=== PATIENT | male | born 1960 | race Caucasian/White ===

== ENCOUNTER → 2017-01-31 | Outpatient (CLI) | payer BC ==
--- NOTE | 2017-01-31 12:45 | EST ---
DATE OF SERVICE: 01/31/2017 AGE: 56Y SEX: M HT: 75" WT: 240 lbs. Protocol Pavel: X Other: Stress Stage: 2 Dur. of Exercise: 8:00 *Heart Rate Blood Pressure *Rest: 104 Rest: 155/73 * *Max. Achieved: 143 Maximum BP: 202/60 85% PMHR: 139 100% PMHR: 164 *METS: 9.3 INDICATIONS: Chest pain. MEDICATIONS: Metformin, aspirin. STRESS DATA: Pretesting physical examination showed heart rate of 104, pressure is 155-73 mmHg. Baseline EKG showed sinus mechanism. The patient exercised on the treadmill according to Pavel protocol for a total of 8 minutes and achieved 10 of METs. Max heart rate was 143, which is about 87% of maximum predicted heart rate. Maximum blood pressure was 202/60 mmHg. Clinically, the patient did not have any symptoms of chest pain or discomfort during the testing or in the recovery time. The EKG did not show any significant ST or T-wave abnormalities consistent with ischemia. CONCLUSION: 1. Good exercise capacity. 2. Normal EKG in response to exercise. 3. Essentially normal stress test for this gentleman.
== END | disposition home or self-care (01) ==
LOC: RADNMMAIN 11:17
PROVIDERS: ATTEND Internal Medicine
DX: R07.9 Chest pain, unspecified (principal)
CPT/HCPCS: 93017

== ENCOUNTER 2020-07-25 19:39 | Inpatient (IN) | payer BC, OTHER ==
[2020-07-25] MEDS ORDERED: METOPROLOL TARTRATE 5 MG/5 ML VIAL IVP STA (19:54)
--- NOTE | 2020-07-25 19:55 | ED ---
Chest Pain HPI - General Chief Complaint: Chest Pain Stated Complaint: Chest Pain Time Seen by Provider: 07/25/20 19:46 Source: patient, RN notes reviewed, old records reviewed Mode of arrival: ambulatory Limitations: no limitations - History of Present Illness Initial Comments: This is a 6-year-old male DF for evaluation of 3 days of chest pain exertional dyspnea. Patient has history of diabetes no history of heart disease. No fever cough or congestion. Symptoms began after prostate biopsy taking Cipro she was related to the Cipro. The pain is persistent last 2 days worsening today. MD Complaint: chest pain -: days(s) (3) Onset: during rest, during exertion Pain Location: left chest Pain Radiation: RUE, LUE Severity: mild Quality: tightness Consistency: constant Improves With: nothing Context: recent surgery Other Symptoms: palpitations Treatments Prior to Arrival: none - Related Data Allergies Allergy/AdvReac Type Severity Reaction Status Date / Time No Known Allergies Allergy Verified 07/25/20 19:50 Review of Systems ROS Statement: Those systems with pertinent positive or pertinent negative responses have been documented in the HPI. ROS Other: All systems not noted in ROS Statement are negative. EKG Findings - EKG Comments: EKG Findings:: EKG is sinus tachycardia of 101 [place] 178 QRS 90 QTC of 435 Past Medical History Past Medical History: Diabetes Mellitus History of Any Multi-Drug Resistant Organisms: None Reported Past Surgical History: No Surgical Hx Reported Past Psychological History: No Psychological Hx Reported Smoking Status: Never smoker Past Alcohol Use History: None Reported Past Drug Use History: None Reported General Exam Limitations: no limitations General appearance: alert, in no apparent distress, anxious Head exam: Present: atraumatic, normocephalic, normal inspection Eye exam: Present: normal appearance, PERRL, EOMI. Absent: scleral icterus, conjunctival injection, periorbital swelling ENT exam: Present: normal exam, mucous membranes moist Neck exam: Present: normal inspection. Absent: tenderness, meningismus, lymphadenopathy Respiratory exam: Present: normal lung sounds bilaterally. Absent: respiratory distress, wheezes, rales, rhonchi, stridor Cardiovascular Exam: Present: normal rhythm, tachycardia, normal heart sounds. Absent: systolic murmur, diastolic murmur, rubs, gallop, clicks GI/Abdominal exam: Present: soft, normal bowel sounds. Absent: distended, tenderness, guarding, rebound, rigid Extremities exam: Present: normal inspection, full ROM, normal capillary refill. Absent: tenderness, pedal edema, joint swelling, calf tenderness Back exam: Present: normal inspection Neurological exam: Present: alert, oriented X3, CN II-XII intact Psychiatric exam: Present: normal affect, normal mood Skin exam: Present: warm, dry, intact, normal color. Absent: rash Course Vital Signs 07/25/20 19:48 Temperature 98 F Pulse Rate 107 H Respiratory 20 Rate Blood Pressure 205/132 O2 Sat by Pulse 98 Oximetry - Reevaluation(s) Reevaluation #1: 07/25/20 21:28 Record is reviewed Reevaluation #2: 07/25/20 21:28 Patient blood pressures improved and pain is controlled - Consultations Consultation #1: Spoke with Dr. Turner who is aware of patient, will see in the morning Chest Pain MDM - MDM 60 male DF for evaluation patient Dese for evaluation regards to chest pain elevated blood pressure hypertensive emergency. Other troponin non-STEMI. Critical Care Time Critical Care Time: Yes Total Critical Care Time: 31 Disposition Clinical Impression: Chest pain, Acute non-ST elevation myocardial infarction (NSTEMI) Disposition: ADMITTED IP TO THIS HOSP Condition: Serious Referrals: Ruth Faust, ABRAM [REFERRING] - 1-2 days
[2020-07-25] MEDS ORDERED: LABETALOL SYRINGE 5 MG/ML IVP STA (20:08)
[2020-07-25 20:10] LABS: Basophils # (A) 0.1 k/uL (0-0.2); Basophils % (A) 1 %; Eosinophils # (A) 0.5 k/uL (0-0.7); Eosinophils % (A) 4 %; HCT 46.4 % (39.0-53.0); Lymphocytes # (A) 3.9 k/uL (1.0-4.8); Lymphocytes % (A) 34 %; MCH 29.4 pg (25.0-35.0); MCHC 32.3 g/dL (31.0-37.0); MCV 90.9 fL (80.0-100.0); Mean Platelet Volume 7.5; Monocytes # (A) 0.7 k/uL (0-1.0); Monocytes % (A) 6 %; Neutrophils # (A) 6.1 k/uL (1.3-7.7); Neutrophils % (A) 53 %; Platelet Count 259 k/uL (150-450); RBC 5.11 m/uL (4.30-5.90); RDW 13.3 % (11.5-15.5); WBC 11.5 k/uL (3.8-10.6)
[2020-07-25 20:19] LABS: Partial Thromboplastin Time 23.5 sec (22.0-30.0); Prothrombin Time 10.5 sec (9.0-12.0)
[2020-07-25 20:21] LABS: ALT 31 U/L (4-49); AST 27 U/L (17-59); African American GFR (CKD) >90 (>60 ml/min/1.73 sqM); Albumin 4.4 g/dL (3.5-5.0); Alkaline Phosphatase 65 U/L (38-126); Anion Gap 9 mmol/L; Blood Urea Nitrogen 19 mg/dL (9-20); Calcium 9.3 mg/dL (8.4-10.2); Carbon Dioxide 25 mmol/L (22-30); Chloride 104 mmol/L (98-107); Glucose 205 mg/dL (74-99); Lipase 54 U/L (23-300); Magnesium 1.9 mg/dL (1.6-2.3); Non-African American GFR(CKD) 88 (>60 ml/min/1.73 sqM); Potassium 4.1 mmol/L (3.5-5.1); Sodium 138 mmol/L (137-145); Total Bilirubin 0.6 mg/dL (0.2-1.3); Total Protein 7.4 g/dL (6.3-8.2)
[2020-07-25] MEDS ORDERED: NITROGLYCERIN SL TABS 0.4 MG TAB SUBLINGUAL STA (21:00)
--- NOTE | 2020-07-25 21:01 | CT ---
EXAMINATION TYPE: CT angio thor/abd pel aorta DATE OF EXAM: 07/25/2020 COMPARISON: Chest x-ray same date HISTORY: Chest pain. CT DLP: 2264.8 mGycm. Automated Exposure Control for Dose Reduction was Utilized. CONTRAST: CT scan of the thorax, abdomen and pelvis is performed without and with IV Contrast, patient injected with 100ml mL of Isovue 370. FINDINGS: There is no evident aortic aneurysm or dissection. Aorta is patent, there are 3 super aorti c branch vessels. Celiac axis, superior mesenteric artery, inferior mesenteric artery, renal arteries , common iliac, internal and external iliac arteries are patent. Common femoral arteries, proximal de ep and superficial femoral arteries are patent. LUNGS: The lungs are grossly clear, there is no concerning parenchymal mass or nodule identified. T here is no pleural effusion or pneumothorax seen. The tracheobronchial tree is patent. MEDIASTINUM: There are no greater than 1 cm hilar or mediastinal lymph nodes. No pericardial effusi on is seen. OTHER: No additional significant abnormality is seen. LIVER/GB: Liver shows low attenuation likely due to hepatic steatosis. The liver is enlarged. Gallbla dder is unremarkable.. PANCREAS: No significant abnormality is seen. SPLEEN: No significant abnormality is seen. ADRENALS: No significant abnormality is seen. KIDNEYS: No significant abnormality is seen. BOWEL: Diverticular changes noted within the colon. GENITAL ORGANS: Prostate is enlarged. There is an inferior impression on the urinary bladder. LYMPH NODES: No greater than 1cm abdominal or pelvic lymph nodes are appreciated. OSSEOUS STRUCTURES: There is a spinal curvature. Degenerative disc changes, multilevel spondylosis pr esent. Some osteoarthritic change present within the left hip. Bilateral spondylolysis present at L5. OTHER: Urinary bladder shows concentric wall thickening possibly due to chronic outlet obstruction. IMPRESSION: No evident pulmonary embolism or aortic dissection, no aortic aneurysm. Hepatomegaly, hep atic steatosis. Diverticulosis. Spondylolysis, degenerative disc disease, prosthetic enlargement and additional findings above.
--- NOTE | 2020-07-25 21:13 | XR ---
EXAMINATION TYPE: XR chest 2V DATE OF EXAM: 07/25/2020 COMPARISON: CT same date HISTORY: Chest pain TECHNIQUE: Frontal and lateral views of the chest are obtained. FINDINGS: There is no focal air space opacity, pleural effusion, or pneumothorax seen. The cardiac silhouette size is within normal limits. The osseous structures are intact. IMPRESSION: No acute cardiopulmonary process.
[2020-07-25] MEDS ORDERED: HEPARIN SODIUM,PORCINE 5,000 UNIT/ML 1 ML VIAL IV PRN (21:26)
[2020-07-25] MEDS ORDERED: ASPIRIN 81 MG PO STA (21:26)
[2020-07-25] MEDS ORDERED: HEPARIN SODIUM,PORCINE 5,000 UNIT/ML 1 ML VIAL IV ONE (21:26)
[2020-07-25] MEDS ORDERED: HEPARIN SOD,PORK IN 0.45% NACL 25,000 UNIT in 0.45% NACL 1 250ML.BAG IV SCH (21:30)
[2020-07-25] MEDS: SODIUM CHLORIDE 0.9% 1,000 ML IV SCH (21:53)
[2020-07-25] MEDS: MORPHINE SULFATE 4 MG/ML SYRINGE IV PRN (23:29)
[2020-07-26] MEDS ORDERED: NITROGLYCERIN SL TABS 0.4 MG TAB SUBLINGUAL PRN ×2 (00:07→11:16)
--- NOTE | 2020-07-26 00:14 | P.HPIM ---
History of Present Illness H&P Date: 07/25/20 Chief Complaint: chest pain 60 year old male with DM patient comes in due to retrosternal chest pain , non radiating, started suddenly today , not related to any specific physical activity , he denies any exertional dyspnea in the past, he reports having hypertension ,but has not been started on medications, he also has DM on oral hypoglycemic agents with A1C of 7.7 pain started today , but he recalls an episode of brief chest discomfort few days ago. he states pain feels dull , 8-10/10 in severity, not associated with any dizziness, palpitations, SOB, diaphoresis , nausea or vomiting. denies any recent travel or hospitalization , however he recently had prostate US done. denies any sick contact, or coughing in the ED , troponins were elevated along with his blood pressure Review of Systems Pertinent positives as noted in HPI. All other systems were reviewed and are negative Past Medical History Past Medical History: Diabetes Mellitus History of Any Multi-Drug Resistant Organisms: None Reported Past Surgical History: No Surgical Hx Reported Past Psychological History: No Psychological Hx Reported Smoking Status: Never smoker Past Alcohol Use History: None Reported Past Drug Use History: None Reported - Past Family History family Family Medical History: Coronary Artery Disease (CAD) Medications and Allergies Home Medications Medication Instructions Recorded Confirmed Type Augmentin Unknown Dose 1 tab PO DAILY 07/25/20 07/25/20 History Cholecalciferol [Vitamin D3 (25 1,000 unit PO DAILY 07/25/20 07/25/20 History Mcg = 1000 Iu)] Ciprofloxacin HCl [Cipro] 500 mg PO DAILY 07/25/20 07/25/20 History Metformin Unknown Dose 2 tab PO DAILY 07/25/20 07/25/20 History Zinc 50 mg PO DAILY 07/25/20 07/25/20 History glipiZIDE [Glucotrol] 5 mg PO AC-BRKFST 07/25/20 07/25/20 History Allergies Allergy/AdvReac Type Severity Reaction Status Date / Time No Known Allergies Allergy Verified 07/25/20 21:33 Physical Exam Vitals: Vital Signs Temp Pulse Resp BP Pulse Ox 07/25/20 23:00 98.0 F 90 18 159/90 98 07/25/20 19:48 98 F 107 H 20 205/132 98 Intake and Output 07/25/20 07/25/20 07/26/20 14:59 22:59 06:59 Other: Weight 107.501 kg Constitutional: No acute distress, conversant, pleasant Eyes: Anicteric sclerae, moist conjunctiva, Pupils equal round reactive to light ENMT: NC/AT Oropharynx clear, no erythema, or exudates Neck: Supple, FROM, no masses, or JVD No carotid bruits No thyromegaly Lungs: Clear to auscultation Clear to percussion Normal respiratory effort, no accessory muscle use Cardiovascular: Heart regular in rate and rhythm, No murmurs, gallops, or rubs No peripheral edema Abdominal: Soft Nontender, no guarding, rebound or rigidity Abdomen moving with respiration Normoactive bowel sounds No hepatomegaly, No splenomegaly No palpable mass No abdominal wall hernia noted Skin: Normal temperature, tone, texture, turgor No induration No subcutaneous nodules No rash, lesions No ulcers Extremities: No digital cyanosis No clubbing Pedal pulses intact and symmetrical Radial pulses intact and symmetrical No calf tenderness Psychiatric: Alert and oriented to person, place and time Appropriate affect fair judgement Neuro Muscles Strength 5/5 in all 4 extremities Sensation to light touch grossly present throughout Cranial nerves II-XII grossly intact No focal sensory deficits Lymphatics: no palpable cervical or supraclavicular , or inguinal lymph nodes Results CBC & Chem 7: 07/25/20 20:02 07/25/20 20:02 Labs: Abnormal Lab Results - Last 24 Hours (Table) 07/25/20 07/25/20 07/25/20 Range/Units 20:02 20:02 20:02 WBC 11.5 H (3.8-10.6) k/uL Glucose 205 H (74-99) mg/dL Troponin I 0.464 H* (0.000-0.034) ng/mL 07/25/20 Range/Units 22:44 WBC (3.8-10.6) k/uL Glucose (74-99) mg/dL Troponin I 1.010 H* (0.000-0.034) ng/mL Assessment and Plan Assessment: N-STEMI Related hypertension Atypical chest pain Plan Heparin drip Nitro when necessary Start on beta kaley Gentle IV fluid hydration Statin, aspirin Cardiology consult hall monitor Diabetes mellitus on insulin sliding scale A1c 7.7 home on oral hypoglycemic agents CODE STATUS:full code DVT prophylaxis: heparin gtt for ACS Discussed with: Patient, ER Anticipated length of stay < than [address]: home A total of 65* minutes was spent on the care of this complex patient more than 50% of the time was spent in counseling and care coordination.
[2020-07-26] MEDS ORDERED: ACETAMINOPHEN TAB 325 MG TAB PO PRN (02:10)
[2020-07-26] MEDS: ATORVASTATIN 40 MG TAB PO SCH ×2 (02:30→20:46)
[2020-07-26 03:20] LABS: Platelet Count 231 k/uL (150-450)
[2020-07-26] MEDS: MORPHINE SULFATE 4 MG/ML SYRINGE IV PRN (03:47)
[2020-07-26 04:27] LABS: Cholesterol 166 mg/dL (<200); HDL Cholesterol 42 mg/dL (40-60); LDL Cholesterol,Calculated 102 mg/dL (0-99); Triglycerides 111 mg/dL (<150)
[2020-07-26 06:08] LABS: Glucose,Whole Blood 177 mg/dL (75-99)
[2020-07-26] MEDS: INSULIN ASPART (NovoLOG) 100 UNIT/ML VIAL SQ SCH ×4 (06:21→20:46)
[2020-07-26] MEDS ORDERED: ASPIRIN 325 MG TAB PO STA (08:24)
[2020-07-26] MEDS ORDERED: ALPRAZolam 0.5 MG TAB PO PRN (08:24)
[2020-07-26] MEDS ORDERED: SODIUM CHLORIDE 0.9% 1,000 ML in EMPTY BAG 1 BAG IV ONE (08:24)
[2020-07-26] MEDS ORDERED: ALPRAZolam 0.25 MG TAB PO PRN (08:24)
[2020-07-26] MEDS ORDERED: ATORVASTATIN 80 MG TAB PO STA (08:24)
[2020-07-26] MEDS ORDERED: ASPIRIN 325 MG TAB PO SCH (09:00)
[2020-07-26] MEDS: MIDAZOLAM 2 MG/2 ML VIAL IV ONE ×2 (10:13→10:47)
[2020-07-26] MEDS ORDERED: IV FLUID CONTINUATION 1,000 ML IV ONE (10:13)
[2020-07-26] MEDS: fentaNYL (PF) 50 MCG/ML 2 ML AMP IV ONE ×2 (10:13→11:06)
[2020-07-26] MEDS ORDERED: LIDOCAINE 1% INJ 10MG/ML (20 ML MDV) SQ ONE (10:16)
[2020-07-26] MEDS ORDERED: VERAPAMIL SYRINGE (5 MG/10 ML) INTRAARTER ONE (10:19)
[2020-07-26] MEDS ORDERED: BIVALIRUDIN BOLUS 250 MG/50 ML IV ONE (10:57)
[2020-07-26] MEDS ORDERED: BIVALIRUDIN 250 MG in SODIUM CHLORIDE 0.9% 50 ML IV ONE (10:58)
[2020-07-26] MEDS ORDERED: PRASUGREL 10 MG TAB PO ONE (11:04)
[2020-07-26] MEDS: NITROGLYCERIN 1000MCG/10ML SYRINGE INTRACORON ONE ×2 (11:04→11:10)
[2020-07-26] MEDS ORDERED: IOPAMIDOL-370 125ML BTL INJ ONE (11:08)
[2020-07-26] MEDS ORDERED: IOPAMIDOL-370 100ML BTL INJ ONE (11:13)
[2020-07-26] MEDS ORDERED: RX INFO: IV CONTRAST WAS GIVEN 1 EACH MISC MISCELLANE PRN (11:16)
[2020-07-26] MEDS ORDERED: ATROPINE SULFATE 0.1 MG/ML 10ML SYRINGE IV PRN (11:16)
[2020-07-26] MEDS ORDERED: ZOLPIDEM 5 MG TAB PO PRN (11:16)
[2020-07-26] MEDS ORDERED: SODIUM CHLORIDE 0.9% 1,000 ML IV SCH (11:30)
[2020-07-26 11:51] LABS: Glucose,Whole Blood 202 mg/dL (75-99)
--- NOTE | 2020-07-26 11:58 | P.CARDCATH ---
Date of Procedure: 07/26/20 Preoperative Diagnosis: Non-STEMI Postoperative Diagnosis: Subtotal occlusion of the mid LAD, moderate disease in the RCA Procedure(s) Performed: Left heart catheterization without left ventriculography Description of Procedure: HISTORY: This is a 60-year-old gentleman was admitted to through the emergency room with complaints of chest pains and positive troponins. EKG showed Q waves in the inferolateral leads with ST elevations. This may represent subacute ND or possibility of aneurysm. Patient still having chest pain. He is advised to have a cardiac cath for definitive diagnosis CONSENT:I have discussed the risks, benefits and alternative therapies for the above-mentioned procedure and for both sedation/analgesia as well as necessary blood product administration, if indicated, as they pertain to this patient. T he patient has indicated understanding and acceptance of the risks and procedures discussed. PROCEDURE: Patient was brought to the lab in a fasting state. Patient was given some IV sedation. The right wrist is infiltrated with lidocaine and right radial artery was entered using Seldinger technique. A 6-Libyan catheter was left in place and selective coronary arteriography was performed. Patient tolerated the procedure well. Patient went on to have stent placement of the mid LAD by Dr. Mendes.. No immediate complications were noted and patient was transferred to [facility] in a stable condition Conscious Sedation: Versed 1mg Fentanyl 50 g Duration 16minutes HEMODYNAMICS: The aortic pressure is about 130/70. Left ankle end-diastolic pressure is about 15 no gradient across the aortic valve SELECTIVE CORONARY ARTERIOGRAPHY: LEFT MAIN: Normal length and free of occlusive disease THE LEFT ANTERIOR DESCENDING CORONARY ARTERY: . This is a good caliber vessel giving rise to good-sized septal and first diagonal branch. Beyond the origin of the diagonal the LAD has subtotal occlusion. There is DEBORAH-3 flow into the distal LAD THE LEFT CIRCUMFLEX AND IS CORONARY ARTERY: This is a nondominant vessel giving rise to good-sized OM branch. Free of any significant focal lesion THE RIGHT CORONARY ARTERY: . This is a dominant vessel with diffuse disease involving the proximal and mid portions with areas of about 60% stenosis LEFT VENTRICULOGRAPHY: Not performed FINAL IMPRESSION: Subtotal occlusion of the mid LAD. Moderate disease involving the proximal and midportion of the RCA PLAN: Stent placement of the LAD followed by medical therapy PROGNOSIS: Guarded
--- NOTE | 2020-07-26 12:34 | PTCA ---
PERCUTANEOUSTRANS CORORONARY ANGIOGRAPHY DATE OF SERVICE: 07/26/2020. PERFORMING PHYSICIAN: Gerry Macdonald MD. PROCEDURE PERFORMED: Successful stenting of the mid left anterior descending artery using 3.5 x 18 and 3.0 x 15 mm Xience drug-eluting stent with an excellent angiographic results and reduction of stenosis from 99% to 0%. INDICATION: This is a 60-year-old gentleman who was admitted to the hospital with chest discomfort and ruled in for acute coronary syndrome. He underwent a heart catheterization by Dr. Serrano and was found to have severe disease in critical disease involving the mid LAD in 2 segments. Because of that, the decision was made towards percutaneous coronary intervention. APPROACH: Right radial artery. COMPLICATION: None. LEVEL OF SEDATION: Moderate with sedation length of 27 minutes. PROCEDURE DESCRIPTION: Please refer to diagnostic heart catheterization was performed by Dr. Serrano earlier today. Anticoagulation was initiated using Angiomax. Subsequently, I did engage the left main using a JL3 guide. I did wire the LAD using a run-through wire. Predilatation was achieved using 2.5 x 15 mm balloon before I deployed in the mid to distal LAD 3.0 x 15 and in the mid LAD 3.5 x 18 mm Xience drug- eluting stent. Both the stents were deployed under 12 atmospheres for 20 seconds with the following angiogram showed excellent angiographic results and the procedure was completed without any complication. POSTPROCEDURE MANAGEMENT: 1. Dual anti-platelet therapy. 2. Risk factor modifications. 3. Follow up with the patient. MMODL / IJN: [id number] /
[2020-07-26] MEDS: MAG HYDROX/AL HYDROX/SIMETH 30 ML CUP PO PRN ×2 (14:14→16:45)
[2020-07-26] MEDS: lisinopriL 5 MG TAB PO SCH (14:14)
[2020-07-26] MEDS: METOPROLOL TARTRATE 25 MG TAB PO SCH ×2 (14:14→20:46)
[2020-07-26 15:37] LABS: Glucose,Whole Blood 201 mg/dL (75-99)
[2020-07-26 17:26] LABS: Glucose,Whole Blood 192 mg/dL (75-99)
--- NOTE | 2020-07-26 18:13 | P.PN ---
Subjective Progress Note Date: 07/26/20 Patient underwent left heart catheterization with successful stent placement today. Denies any chest pain. Objective - Vital Signs Vital signs: Vital Signs Temp 98 F 07/26/20 16:00 Pulse 97 07/26/20 17:00 Resp 13 07/26/20 17:00 BP 123/87 07/26/20 17:00 Pulse Ox 95 07/26/20 17:00 Intake & Output 07/25/20 07/26/20 07/26/20 18:59 06:59 18:59 Intake Total 660 515 Balance 660 515 Weight 107.501 kg Intake: IV 515 Sodium Chloride 0.9% 1, 75 000 ml @ 75 mls/hr IV . [id number] [facility] Rx#:[id number] Intake, IV Titration 120 Amount Sodium Chloride 0.9% 1, 120 000 ml @ 20 mls/hr IV . Q24H [facility] Rx#:[id number] Oral 540 Other: Voiding Method Toilet Urinal # Voids 1 1 - Exam General: The patient is awake and alert, in no distress Eye: there is normal conjunctiva bilaterally. Neck: The neck is supple, there is no JVD. Cardiovascular: Normal S1-S2, no S3-S4, no murmurs. Respiratory: Lungs clear to auscultation bilaterally Gastrointestinal: Abdomen is soft, nontender Musculoskeletal: There is no pedal edema. Neurological:. Speech is normal. Skin: Skin is warm and dry - Labs CBC & Chem 7: 07/26/20 02:42 07/25/20 20:02 Labs: Abnormal Lab Results - Last 24 Hours (Table) 07/25/20 07/25/20 07/25/20 Range/Units 20:02 20:02 20:02 WBC 11.5 H (3.8-10.6) k/uL APTT (22.0-30.0) sec Glucose 205 H (74-99) mg/dL POC Glucose (mg/dL) (75-99) mg/dL Troponin I 0.464 H* (0.000-0.034) ng/mL LDL Cholesterol, Calc (0-99) mg/dL 07/25/20 07/26/20 07/26/20 Range/Units 22:44 02:42 02:42 WBC (3.8-10.6) k/uL APTT (22.0-30.0) sec Glucose (74-99) mg/dL POC Glucose (mg/dL) (75-99) mg/dL Troponin I 1.010 H* 2.800 H* (0.000-0.034) ng/mL LDL Cholesterol, Calc 102 H (0-99) mg/dL 07/26/20 07/26/20 07/26/20 Range/Units 02:42 06:06 11:45 WBC (3.8-10.6) k/uL APTT 43.7 H (22.0-30.0) sec Glucose (74-99) mg/dL POC Glucose (mg/dL) 177 H 202 H (75-99) mg/dL Troponin I (0.000-0.034) ng/mL LDL Cholesterol, Calc (0-99) mg/dL 07/26/20 07/26/20 Range/Units 15:36 17:15 WBC (3.8-10.6) k/uL APTT (22.0-30.0) sec Glucose (74-99) mg/dL POC Glucose (mg/dL) 201 H 192 H (75-99) mg/dL Troponin I (0.000-0.034) ng/mL LDL Cholesterol, Calc (0-99) mg/dL Assessment and Plan Assessment: 1. Non-ST elevation VT, status post left heart catheterization with successful stent placement to LAD. Continue optimal medical management per cardiology. Echocardiogram ordered and pending. 2. Type 2 diabetes: A1c 7.7. Continue sliding scale insulin 3. Hyperlipidemia, LDL 101. Started on Lipitor 40 mg daily Continue telemetry monitoring. Repeat lab work in the morning.
[2020-07-26 20:26] LABS: Glucose,Whole Blood 172 mg/dL (75-99)
[2020-07-26] MEDS: SODIUM CHLORIDE 0.9% 1,000 ML IV SCH (22:47)
[2020-07-27 04:08] LABS: Basophils # (A) 0.1 k/uL (0-0.2); Basophils % (A) 1 %; Eosinophils # (A) 0.2 k/uL (0-0.7); Eosinophils % (A) 2 %; HCT 44.3 % (39.0-53.0); HGB 14.9 gm/dL (13.0-17.5); Lymphocytes # (A) 2.7 k/uL (1.0-4.8); Lymphocytes % (A) 26 %; MCH 30.6 pg (25.0-35.0); MCHC 33.7 g/dL (31.0-37.0); MCV 90.8 fL (80.0-100.0); Mean Platelet Volume 7.3; Monocytes % (A) 10 %; Neutrophils # (A) 6.2 k/uL (1.3-7.7); Neutrophils % (A) 60 %; Platelet Count 207 k/uL (150-450); RBC 4.88 m/uL (4.30-5.90); WBC 10.3 k/uL (3.8-10.6)
[2020-07-27 04:27] LABS: African American GFR (CKD) >90 (>60 ml/min/1.73 sqM); Anion Gap 8 mmol/L; Blood Urea Nitrogen 11 mg/dL (9-20); Calcium 8.8 mg/dL (8.4-10.2); Carbon Dioxide 22 mmol/L (22-30); Chloride 105 mmol/L (98-107); Glucose 184 mg/dL (74-99); Non-African American GFR(CKD) >90 (>60 ml/min/1.73 sqM); Potassium 4.3 mmol/L (3.5-5.1); Sodium 135 mmol/L (137-145)
[2020-07-27 06:35] LABS: Glucose,Whole Blood 171 mg/dL (75-99)
[2020-07-27] MEDS: INSULIN ASPART (NovoLOG) 100 UNIT/ML VIAL SQ SCH ×4 (06:38→21:01)
[2020-07-27] MEDS: lisinopriL 5 MG TAB PO SCH (09:13)
--- NOTE | 2020-07-27 09:13 | P.PN ---
Subjective Progress Note Date: 07/27/20 This is a 60-year-old gentleman who presented to the hospital with symptoms of chest discomfort, his EKG showed Q waves in the inferior lateral leads with ST elevation noted in the anterior leads as well as the inferior lateral leads. He was taken directly to the cardiac catheterization lab by Dr. Serrano and patient underwent angioplasty and stenting of the LAD. His repeat EKG this morning continued to show ST elevations. Patient was also found to have moderate disease involving the proximal and midportion of the RCA. His echocardiogram with Doppler study has been performed and is yet pending. This morning he was seen and evaluated in the intensive care unit, he is feeling well overall he denies any chest discomfort and is breathing stable. Blood pressure 118/87, heart rate in the 80s, 95% on room air. White blood cell count 10.3, hemoglobin 14.9, platelet count 207. Sodium 135, potassium 4.3, BUN 11, creatinine 0.9. On discussion with the patient this morning, does appear that the patient has been having symptoms of chest discomfort for approximately one year in duration. Over the past 3 days, his symptoms were significantly worse. Objective - Vital Signs Vital signs: Vital Signs Temp 97.6 F 07/27/20 08:00 Pulse 99 07/27/20 09:00 Resp 29 H 07/27/20 09:00 BP 118/87 07/27/20 09:00 Pulse Ox 95 07/27/20 09:00 Intake & Output 07/26/20 07/27/20 07/27/20 18:59 06:59 18:59 Intake Total 665 75 500 Output Total 0 0 Balance 665 75 500 Weight 107.7 kg Intake: IV 665 75 0 Sodium Chloride 0.9% 1, 225 75 0 000 ml @ 75 mls/hr IV . [id number] [facility] Rx#:[id number] Oral 500 Output: Urine 0 0 Other: Voiding Method Urinal Urinal # Voids 1 1 - Exam PHYSICAL EXAMINATION: GENERAL: 0 gentleman in no acute distress at the time of my examination HEENT: Head is atraumatic, normocephalic. Pupils equal, round. Sclera anicteric. Conjunctiva are clear. Mucous membranes of the mouth are moist. Neck is supple. There is no elevated jugular venous pressure. No carotid bruit is heard. HEART EXAMINATION: Heart S1, S2 normal. No murmur or gallop heard. CHEST EXAMINATION: Lungs are clear to auscultation and precussion. No chest wall tenderness is noted on palpation or with deep breathing. ABDOMEN: Soft, nontender. Bowel sounds are heard. No organomegaly noted. EXTREMITIES: 2+ peripheral pulses with no evidence of peripheral edema and no calf tenderness noted. Right radial site clean and dry, good distal pulse. NEUROLOGIC patient is awake, alert and oriented 3 . - Labs CBC & Chem 7: 07/27/20 03:49 07/27/20 03:49 Labs: Abnormal Lab Results - Last 24 Hours (Table) 07/26/20 07/26/20 07/26/20 Range/Units 11:45 15:36 17:15 Sodium (137-145) mmol/L Glucose (74-99) mg/dL POC Glucose (mg/dL) 202 H 201 H 192 H (75-99) mg/dL 07/26/20 07/27/20 07/27/20 Range/Units 20:25 03:49 06:34 Sodium 135 L (137-145) mmol/L Glucose 184 H (74-99) mg/dL POC Glucose (mg/dL) 172 H 171 H (75-99) mg/dL Assessment and Plan Plan: Assessment and plan #[address] elevation anterior wall myocardial infarction, status post angioplasty and stenting of the LAD. Patient was also found to have moderate disease in the right coronary artery. His EKG from this morning continues to show ST elevation. #2 hyperlipidemia #3 diabetes Plan We will continue the patient on dual antiplatelet therapy along with statin, beta kaley, and MARIAM inhibitor. The patient's echocardiogram with Doppler study. Continue to monitor for any arrhythmias. Plan for possible discharge home in 24-48 hours if stable. DNP note has been reviewed, I agree with a documented findings and plan of care. Patient was seen and examined.
[2020-07-27] MEDS: ASPIRIN 81 MG PO SCH (09:14)
[2020-07-27] MEDS: METOPROLOL TARTRATE 25 MG TAB PO SCH ×2 (09:14→21:01)
[2020-07-27] MEDS: PRASUGREL 10 MG TAB PO SCH (09:14)
[2020-07-27 11:04] VITALS: BMI 29.7
[2020-07-27 11:46] LABS: Glucose,Whole Blood 162 mg/dL (75-99)
--- NOTE | 2020-07-27 14:01 | P.PN ---
Subjective Progress Note Date: 07/27/20 Patient is doing well today. He denies any chest pain. He does not have any complaints. Objective - Vital Signs Vital signs: Vital Signs Temp 97.6 F 07/27/20 12:00 Pulse 84 07/27/20 12:00 Resp 21 07/27/20 12:00 BP 96/65 07/27/20 12:00 Pulse Ox 97 07/27/20 12:00 Intake & Output 07/26/20 07/27/20 07/27/20 18:59 06:59 18:59 Intake Total 665 75 740 Output Total 0 0 Balance 665 75 740 Weight 107.7 kg 107.7 kg Intake: IV 665 75 0 Sodium Chloride 0.9% 1, 225 75 0 000 ml @ 75 mls/hr IV . [id number] [facility] Rx#:[id number] Oral 740 Output: Urine 0 0 Other: Voiding Method Urinal Urinal Urinal # Voids 1 1 1 - Exam General: The patient is awake and alert, in no distress Eye: there is normal conjunctiva bilaterally. Neck: The neck is supple, there is no JVD. Cardiovascular: Normal S1-S2, no S3-S4, no murmurs. Respiratory: Lungs clear to auscultation bilaterally Gastrointestinal: Abdomen is soft, nontender Musculoskeletal: There is no pedal edema. Neurological:. Speech is normal. Skin: Skin is warm and dry - Labs CBC & Chem 7: 07/27/20 03:49 07/27/20 03:49 Labs: Abnormal Lab Results - Last 24 Hours (Table) 07/26/20 07/26/20 07/26/20 Range/Units 15:36 17:15 20:25 Sodium (137-145) mmol/L Glucose (74-99) mg/dL POC Glucose (mg/dL) 201 H 192 H 172 H (75-99) mg/dL 07/27/20 07/27/20 07/27/20 Range/Units 03:49 06:34 11:45 Sodium 135 L (137-145) mmol/L Glucose 184 H (74-99) mg/dL POC Glucose (mg/dL) 171 H 162 H (75-99) mg/dL Assessment and Plan Assessment: 1. ST elevation [place], status post left heart catheterization with successful stent placement to LAD. Continue dual antiplatelet therapy and optimal medical management per cardiology. Echocardiogram ordered and pending. 2. Type 2 diabetes: A1c 7.7. Continue sliding scale insulin 3. Hyperlipidemia, LDL 101. Started on Lipitor 40 mg daily Continue telemetry monitoring. Repeat lab work in the morning. Anticipate discharge home within the next day or 2 when cleared by cardiology
--- NOTE | 2020-07-27 14:21 | P.CRDCN ---
History of Present Illness History of present illness: HISTORY OF PRESENTING ILLNESS This is a pleasant 60-year-old male past medical history significant for diabetes mellitus. 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 We have been asked to see in consultation for elevated troponin. He states for the previous 4 days he has noticed in increased and exertional shortness of breath, chest pain and fatigue. He typically walks 30 minutes in the morning around his block and has had to stop multiple times during his walk to catch his breath. Last evening the symptoms became more intense. The tightness in his chest felt heavier. Initial EKG on admission revealed sinus tachycardia heart rate of 101 with a right axis deviation and minimal ST elevation inferiorly and laterally. He is seen and examined sitting up on the stretcher in no acute distress. He denies active symptoms of chest discomfort or shortness of breath however states he has not been up out of bed. DIAGNOSTICS Chest xray negative for an acute cardiopulmonary process. CT of the thoracic aorta is negative for pulmonary embolism or aortic dissection. Laboratory reviewed, WBC 11.5, hemoglobin 15, platelets 231, sodium 138, potassium 4.1, creatinine 0.94, magnesium 1.9, troponin 0.464, 1.01 and 2.8, and NTproBNP 189, LDL 102 and HDL 42. He takes no daily cardiac medications REVIEW OF SYSTEMS At the time of my exam: CONSTITUTIONAL: Denies fever or chills. CARDIOVASCULAR: Denies chest pain, shortness of breath, orthopnea, PND or palpitations. RESPIRATORY: Denies cough. GASTROINTESTINAL: Denies abdominal pain, diarrhea, constipation, nausea or vomiting. MUSCULOSKELETAL: Denies myalgias. NEUROLOGIC: Denies numbness, tingling or weakness. ENDOCRINE: Denies fatigue, weight change, polydipsia or polyurina. GENITOURINARY: Denies burning, hematuria or urgency with micturation. HEMATOLOGIC: Denies history of anemia or bleeding. PHYSICAL EXAMINATION Blood pressure 135/89 heart rate 82 afebrile and maintaining oxygen saturation on room air. CONSTITUTIONAL: No apparent distress. HEENT: Head is normocephalic. Pupils are equal, round. Sclerae anicteric. Mucous membranes of the mouth are moist. No JVD. No carotid bruit. CHEST EXAMINATION: Lungs are clear to auscultation. No chest wall tenderness is noted on palpation or with deep breathing. HEART EXAMINATION: Regular rate and rhythm. S1, S2 heard. No murmurs, gallops or rub. ABDOMEN: Soft, nontender. Positive bowel sounds. EXTREMITIES: 2+ peripheral pulses, no lower extremity edema and no calf tenderness. NEUROLOGIC EXAMINATION: Patient is awake, alert and oriented x3. ASSESSMENT Acute ST elevated myocardial infarction Diabetes mellitus Dyslipidemia Hypertension PLAN Recommend proceeding with cardiac catheterization.I have discussed the risks, benefits and alternative therapies for the above-mentioned procedure and for both sedation/analgesia as well as necessary blood product administration, if indicated, as they pertain to this patient. The patient has indicated understanding and acceptance of the risks and procedures discussed. Questions have been answered appropriately and he is agreeable to move forward with the above stated procedure. Obtain 2-D echocardiogram and Doppler study to assess cardiac structure and function. Initiate lisinopril 5 mg daily. Continue daily aspirin, atorvastatin and metoprolol as previously ordered. Further recommendations to follow based upon clinical course. Thank you kindly for this consultation. Nurse Practitioner note has been reviewed, I agree with a documented findings and plan of care. Patient was seen and examined. Past Medical History Past Medical History: Diabetes Mellitus History of Any Multi-Drug Resistant Organisms: None Reported Past Surgical History: No Surgical Hx Reported Past Psychological History: No Psychological Hx Reported Smoking Status: Never smoker Past Alcohol Use History: None Reported Past Drug Use History: None Reported - Past Family History family Family Medical History: Coronary Artery Disease (CAD) Medications and Allergies Home Medications Medication Instructions Recorded Confirmed Type Augmentin Unknown Dose 1 tab PO DAILY 07/25/20 07/25/20 History Cholecalciferol [Vitamin D3 (25 1,000 unit PO DAILY 07/25/20 07/25/20 History Mcg = 1000 Iu)] Ciprofloxacin HCl [Cipro] 500 mg PO DAILY 07/25/20 07/25/20 History Metformin Unknown Dose 2 tab PO DAILY 07/25/20 07/25/20 History Zinc 50 mg PO DAILY 07/25/20 07/25/20 History glipiZIDE [Glucotrol] 5 mg PO AC-BRKFST 07/25/20 07/25/20 History Allergies Allergy/AdvReac Type Severity Reaction Status Date / Time No Known Allergies Allergy Verified 07/25/20 21:33 Physical Exam Vitals: Vital Signs Temp Pulse Pulse Resp BP BP Pulse Ox 07/26/20 04:00 98.0 F 82 16 135/89 97 07/26/20 02:00 18 07/26/20 00:35 98.4 F 86 18 123/86 99 07/25/20 23:00 98.0 F 90 18 159/90 98 07/25/20 19:48 98 F 107 H 20 205/132 98 Intake and Output 07/25/20 07/26/20 07/26/20 22:59 06:59 14:59 Intake Total 540 120 Balance 540 120 Intake: Intake, IV Titration 120 Amount Sodium Chloride 0.9% 1, 120 000 ml @ 20 mls/hr IV . Q24H [facility] Rx#:[id number] Oral 540 Other: Voiding Method Toilet # Voids 2 1 Weight 107.501 kg 107.501 kg Results 07/27/20 03:49 07/27/20 03:49 Cardiac Enzymes 07/25/20 07/25/20 07/25/20 Range/Units 20:02 20:02 22:44 AST 27 (17-59) U/L Troponin I 0.464 H* 1.010 H* (0.000-0.034) ng/mL 07/26/20 Range/Units 02:42 AST (17-59) U/L Troponin I 2.800 H* (0.000-0.034) ng/mL Coagulation 07/25/20 07/26/20 Range/Units 20:02 02:42 PT 10.5 (9.0-12.0) sec APTT 23.5 43.7 H (22.0-30.0) sec Lipids 07/26/20 Range/Units 02:42 Triglycerides 111 (<150) mg/dL Cholesterol 166 (<200) mg/dL HDL Cholesterol 42 (40-60) mg/dL CBC 07/25/20 07/26/20 Range/Units 20:02 02:42 WBC 11.5 H (3.8-10.6) k/uL RBC 5.11 (4.30-5.90) m/uL Hgb 15.0 (13.0-17.5) gm/dL Hct 46.4 (39.0-53.0) % Plt Count 259 231 (150-450) k/uL Comprehensive Metabolic Panel 07/25/20 Range/Units 20:02 Sodium 138 (137-145) mmol/L Potassium 4.1 (3.5-5.1) mmol/L Chloride 104 (98-107) mmol/L Carbon Dioxide 25 (22-30) mmol/L BUN 19 (9-20) mg/dL Creatinine 0.94 (0.66-1.25) mg/dL Glucose 205 H (74-99) mg/dL Calcium 9.3 (8.4-10.2) mg/dL AST 27 (17-59) U/L ALT 31 (4-49) U/L Alkaline Phosphatase 65 (38-126) U/L Total Protein 7.4 (6.3-8.2) g/dL Albumin 4.4 (3.5-5.0) g/dL Current Medications Generic Name Dose Route Start Last Admin Trade Name Freq PRN Reason Stop Dose Admin Acetaminophen 650 mg 07/26/20 02:10 07/26/20 02:27 Acetaminophen Tab 325 Mg Tab PO 650 mg Q4HR PRN Administration Fever and/ or Pain Aspirin 325 mg 07/26/20 09:00 Aspirin 325 Mg Tab PO DAILY [facility] Atorvastatin Calcium 40 mg 07/26/20 00:15 07/26/20 02:30 Atorvastatin 40 Mg Tab PO Not Given HS [facility] Heparin Sodium (Porcine) 0 unit 07/25/20 21:26 Heparin Sodium,Porcine 5,000 Unit/Ml 1 Ml Vial IV Q6HR PRN Low PTT Protocol Sodium Chloride 1,000 mls @ 20 mls/hr 07/25/20 21:30 07/25/20 21:53 Saline 0.9% IV 20 mls/hr .Q24H [facility] Administration Heparin Sodium/Sodium Chloride 250 mls @ 9.998 mls/hr 07/25/20 21:30 07/25/20 21:51 25,000 unit/ Sodium Chloride IV 9.3 units/kg/hr .Q24H [facility] 9.998 mls/hr Administration Protocol 9.3 UNITS/KG/HR Insulin Aspart 0 unit 07/26/20 07:30 07/26/20 06:21 Insulin Aspart (Novolog) 100 Unit/Ml Vial SQ Not Given ACHS [facility] Protocol Metoprolol Tartrate 25 mg 07/26/20 09:00 Metoprolol Tartrate 25 Mg Tab PO BID [facility] Morphine Sulfate 4 mg 07/25/20 21:26 07/26/20 03:47 Morphine Sulfate 4 Mg/Ml Syringe IV 4 mg Q4HR PRN Administration Chest Pain Nitroglycerin 0.4 mg 07/26/20 00:07 Nitroglycerin Sl Tabs 0.4 Mg Tab SUBLINGUAL Q5M PRN Chest Pain Intake and Output 07/25/20 07/26/20 07/26/20 22:59 06:59 14:59 Intake Total 540 120 Balance 540 120 Intake: Intake, IV Titration 120 Amount Sodium Chloride 0.9% 1, 120 000 ml @ 20 mls/hr IV . Q24H [facility] Rx#:[id number] Oral 540 Other: Voiding Method Toilet # Voids 2 1 Weight 107.501 kg 107.501 kg 07/26/20 02:42 07/25/20 20:02
[2020-07-27 16:45] LABS: Glucose,Whole Blood 132 mg/dL (75-99)
[2020-07-27 20:52] LABS: Glucose,Whole Blood 169 mg/dL (75-99)
[2020-07-27] MEDS: ATORVASTATIN 40 MG TAB PO SCH (21:01)
[2020-07-27] MEDS: SODIUM CHLORIDE 0.9% 1,000 ML IV SCH (22:44)
[2020-07-28 05:40] LABS: Glucose,Whole Blood 197 mg/dL (75-99)
[2020-07-28] MEDS: INSULIN ASPART (NovoLOG) 100 UNIT/ML VIAL SQ SCH ×2 (06:17→12:17)
[2020-07-28] MEDS: lisinopriL 5 MG TAB PO SCH (09:31)
[2020-07-28] MEDS: METOPROLOL TARTRATE 25 MG TAB PO SCH (09:31)
[2020-07-28] MEDS: PRASUGREL 10 MG TAB PO SCH (09:31)
[2020-07-28] MEDS: ASPIRIN 81 MG PO SCH (09:31)
[2020-07-28 09:51] VITALS: RESP 18
--- NOTE | 2020-07-28 11:24 | P.DS ---
Providers Date of admission: 07/25/20 21:26 Expected date of discharge: 07/28/20 Attending physician: Juan C Hagan MD Consults: 07/25/20 20:55 Consult Physician Routine Consulting Provider: Ganesh Turner Consult Reason/Comments: elevTrop Do you want consulting provider notified?: Yes 07/26/20 11:16 Consult Physician Routine Consulting Provider: [facility] Consult Reason/Comments: Post Interventional patient Do you want consulting provider notified?: Already Contacted Primary care physician: Alek[facility] Course: This is a 60-year-old male with past medical history noted below who presented to the emergency room with chest pain. Patient was evaluated in the ER and admitted to the hospital for further management of his medical problems noted below. 1. ST elevation [place], status post left heart catheterization with successful stent placement to LAD. Continue dual antiplatelet therapy and optimal medical management per cardiology. CT angiogram in the ER negative for PE or aortic dissection/aneurysm. Patient was cleared by cardiology for discharge. No echocardiogram was done during this admission. Follow-up with cardiology as directed. 2. Type 2 diabetes: A1c 7.7. Resume home medication 3. Hyperlipidemia, LDL 101. Started on Lipitor 40 mg daily Patient will be discharged home in a stable condition. For further details about this hospitalization please refer to the electronic chart. Time spent on discharge > 30 minutes including counseling and coordination of care Patient Condition at Discharge: Stable Plan - Discharge Summary Discharge Rx Participant: No New Discharge Prescriptions: New Aspirin 81 mg PO DAILY chew Prasugrel [Effient] 10 mg PO DAILY #90 tab Atorvastatin [Lipitor] 40 mg PO HS #90 tab Metoprolol Tartrate [Lopressor] 25 mg PO BID #180 tab Nitroglycerin Sl Tabs [Nitrostat] 0.4 mg SUBLINGUAL Q5M PRN #1 bottle PRN Reason: Chest Pain lisinopriL [Zestril] 5 mg PO DAILY #90 tab Continue Cholecalciferol [Vitamin D3 (25 Mcg = 1000 Iu)] 1,000 unit PO DAILY glipiZIDE [Glucotrol] 5 mg PO AC-BRKFST Zinc 50 mg PO DAILY Metformin Unknown Dose 2 tab PO DAILY Discontinued Ciprofloxacin HCl [Cipro] 500 mg PO DAILY Augmentin Unknown Dose 1 tab PO DAILY Discharge Medication List Cholecalciferol [Vitamin D3 (25 Mcg = 1000 Iu)] 1,000 unit PO DAILY 07/25/20 [History] Metformin Unknown Dose 2 tab PO DAILY 07/25/20 [History] Zinc 50 mg PO DAILY 07/25/20 [History] glipiZIDE [Glucotrol] 5 mg PO AC-BRKFST 07/25/20 [History] Aspirin 81 mg PO DAILY chew 07/28/20 [Rx] Atorvastatin [Lipitor] 40 mg PO HS #90 tab 07/28/20 [Rx] Metoprolol Tartrate [Lopressor] 25 mg PO BID #180 tab 07/28/20 [Rx] Nitroglycerin Sl Tabs [Nitrostat] 0.4 mg SUBLINGUAL Q5M PRN #1 bottle 07/28/20 [Rx] Prasugrel [Effient] 10 mg PO DAILY #90 tab 07/28/20 [Rx] lisinopriL [Zestril] 5 mg PO DAILY #90 tab 07/28/20 [Rx] Follow up Appointment(s)/Referral(s): Ruth Faust NPC [REFERRING] - 1-2 days Jessica Serrano MD [STAFF PHYSICIAN] - 1 Week Patient Instructions/Handouts: *Surgery [facility] - After Heart Catheterization - [place] Instructions, Heart Attack (DC), Heart Healthy Diet (DC) Discharge Disposition: HOME SELF-CARE
[2020-07-28 11:32] LABS: Glucose,Whole Blood 184 mg/dL (75-99)
[2020-07-28 11:33] LABS: Basophils # (A) 0.1 k/uL (0-0.2); Basophils % (A) 1 %; Eosinophils # (A) 0.4 k/uL (0-0.7); Eosinophils % (A) 4 %; HCT 45.8 % (39.0-53.0); HGB 15.3 gm/dL (13.0-17.5); Lymphocytes # (A) 2.2 k/uL (1.0-4.8); Lymphocytes % (A) 24 %; MCH 30.3 pg (25.0-35.0); MCHC 33.3 g/dL (31.0-37.0); Mean Platelet Volume 7.5; Monocytes # (A) 0.9 k/uL (0-1.0); Monocytes % (A) 10 %; Neutrophils # (A) 5.3 k/uL (1.3-7.7); Neutrophils % (A) 59 %; Platelet Count 231 k/uL (150-450); RBC 5.03 m/uL (4.30-5.90)
[2020-07-28 11:42] LABS: Potassium 4.6 mmol/L (3.5-5.1)
[2020-07-28 12:16] VITALS: BP 119/81; PULSE 79; TEMP 98.7
--- NOTE | 2020-07-28 12:19 | P.PN ---
Subjective HISTORY OF PRESENTING ILLNESS This is a pleasant 60-year-old male past medical history significant for diabetes mellitus. 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 He is s/p PCI of the LAD with 2 DEV. He is seen and examined sitting up in the chair in no acute distress. He d enies chest pain, shortness of breath, dizziness or palpitations. He has been up walking with no symptoms. Blood pressure 143/91 heart rate 96 afebrile maintaining oxygen saturation on room air. Echocardiogram revealed impaired LV systolic function with EF 35-40% with apical akinesia. Telemetry tracings unremarkable. Currently maintained on aspirin 81 mg daily, effient 10 mg daily, atorvastatin 40 mg daily, lisinopril 5 mg daily and lopressor 25 mg BID. PHYSICAL EXAMINATION CONSTITUTIONAL: No apparent distress. HEENT: Head is normocephalic. Pupils are equal, round. Sclerae anicteric. Mucous membranes of the mouth are moist. No JVD. No carotid bruit. CHEST EXAMINATION: Lungs are clear to auscultation. No chest wall tenderness is noted on palpation or with deep breathing. HEART EXAMINATION: Regular rate and rhythm. S1, S2 heard. No murmurs, gallops or rub. EXTREMITIES: 2+ peripheral pulses, no lower extremity edema and no calf tenderness. ASSESSMENT Acute ST elevated myocardial infarction Acute systolic heart failure Ishcemic cardiomyopathy Diabetes mellitus Dyslipidemia Hypertension PLAN Stable on current medical regimen. Medication compliance discussed in detail. Cardiac medications sent to pharmacy. Follow up in the office with Dr. Serrano in 1 week. Nurse Practitioner note has been reviewed, I agree with a documented findings and plan of care. Patient was seen and examined. Objective - Vital Signs Vital signs: Vital Signs Temp 97.6 F 07/28/20 09:30 Pulse 96 07/28/20 09:30 Resp 18 07/28/20 09:30 BP 143/91 07/28/20 09:30 Pulse Ox 98 07/28/20 09:30 Intake & Output 07/27/20 07/28/20 07/28/20 18:59 06:59 18:59 Intake Total 1060 240 Output Total 0 Balance 1060 240 Weight 107.7 kg 107.1 kg Intake: IV 0 Sodium Chloride 0.9% 1, 0 000 ml @ 75 mls/hr IV . [id number] [facility] Rx#:[id number] Oral 1060 240 Output: Urine 0 Other: Voiding Method Urinal Urinal # Voids 1 1 1 # Bowel Movements 1 - Labs CBC & Chem 7: 07/28/20 10:15 07/28/20 10:15 Labs: Abnormal Lab Results - Last 24 Hours (Table) 07/27/20 07/27/20 07/28/20 Range/Units 16:44 20:50 05:38 BUN (9-20) mg/dL Glucose (74-99) mg/dL POC Glucose (mg/dL) 132 H 169 H 197 H (75-99) mg/dL 07/28/20 07/28/20 Range/Units 10:15 11:31 BUN 22 H (9-20) mg/dL Glucose 191 H (74-99) mg/dL POC Glucose (mg/dL) 184 H (75-99) mg/dL
[2020-07-28 16:37] LABS: Glucose,Whole Blood 128 mg/dL (75-99)
[2020-07-28] MEDS ORDERED: CLOPIDOGREL 75 MG TAB PO STA (16:42)
[2020-07-28] MEDS ORDERED: INFLUENZA VACCINE (6 MOS+) 60 MCG/0.5 ML SYRINGE IM ONE (17:52)
[2020-07-29] MEDS ORDERED: CLOPIDOGREL 75 MG TAB PO SCH (09:00)
--- NOTE | 2020-07-29 14:18 | ECHOF ---
Referral Reason:cp, sob MEASUREMENTS -------- HEIGHT: 0.0 cm WEIGHT: 0.0 kg BP: RVIDd: 3.3 cm (< 3.3) IVSd: 1.5 cm (0.6 - 1.1) LVIDd: 4.2 cm (3.9 - 5.3) LVPWd: 1.4 cm (0.6 - 1.1) IVSs: 1.9 cm LVIDs: 3.3 cm LVPWs: 1.5 cm LA Diam: 3.3 cm (2.7 - 3.8) Ao Diam: 3.4 cm (2.0 - 3.7) AV Cusp: 2.4 cm (1.5 - 2.6) MV EXCURSION: 15.965 mm (> 18.000) MV EF SLOPE: 105 mm/s (70 - 150) EPSS: 1.2 cm MV E Giuliano: 1.00 m/s MV DecT: 146 ms MV A Giuliano: 0.96 m/s MV E/A Ratio: 1.05 RAP: 5.00 mmHg RVSP: 27.65 mmHg FINDINGS -------- Sinus rhythm. This was a technically adequate study. The left ventricular size is normal. There is moderate concentric left ventricular hypertrophy. O verall left ventricular systolic function is moderately impaired with, an EF between 35 - 40 %. Mid anterior LV wall motion is hypokinetic. Apical anterior LV wall motion is akinetic. Apical lat eral LV wall motion is akinetic. Apical inferior LV wall motion is akinetic. Apical septum LV w all motion is akinetic. The right ventricle is mildly enlarged. The left atrial size is normal. The right atrial size is normal. Interatrial and interventricular septum intact. The aortic valve is trileaflet, and appears structurally normal. No aortic stenosis or regurgitation. The mitral valve is normal. There is trace to mild mitral regurgitation. The tricuspid valve appears structurally normal. Mild tricuspid regurgitation present. Right vent ricular systolic pressure is normal at < 35 mmHg. Trace/mild (physiologic) pulmonic regurgitation. There is no pericardial effusion. CONCLUSIONS -------- 1. There is moderate concentric left ventricular hypertrophy. 2. Overall left ventricular systolic function is moderately impaired with, an EF between 35 - 40 %. 3. Mid anterior LV wall motion is hypokinetic. 4. Apical anterior LV wall motion is akinetic. 5. Apical lateral LV wall motion is akinetic. 6. Apical inferior LV wall motion is akinetic. 7. Apical septum LV wall motion is akinetic. 8. The right ventricle is mildly enlarged. 9. The left atrial size is normal. 10. The aortic valve is trileaflet, and appears structurally normal. No aortic stenosis or regurgitat ion. 11. There is trace to mild mitral regurgitation. 12. Mild tricuspid regurgitation present. 13. Trace/mild (physiologic) pulmonic regurgitation. OIL WELL GUN PERFORATOR OPERATOR: Pita Valentin RDCS
== END 2020-07-28 18:49 | disposition home or self-care (01) | DRG 246 ==
LOC: EC 19:39 → 3SCARD 21:26 → OBSVTOIN 21:26 → 3SCARD 23:04 → 2SICU 07-26 15:11 → 3SCARD 07-27 14:02
PROVIDERS: ADMIT Internal Medicine; ATTEND Internal Medicine
PROC: 027034Z Dilation of Coronary Artery, One Artery with Drug-eluting Intraluminal Device, Percutaneous Approach (ICD-10-PCS; principal; 2020-07-26 11:40)
PROC: 4A023N7 Measurement of Cardiac Sampling and Pressure, Left Heart, Percutaneous Approach (ICD-10-PCS; 2020-07-26 11:40)
PROC: B2111ZZ Fluoroscopy of Multiple Coronary Arteries using Low Osmolar Contrast (ICD-10-PCS; 2020-07-26 11:40)
DX: I21.09 ST elevation (STEMI) myocardial infarction involving other coronary artery of anterior wall (principal); I50.21 Acute systolic (congestive) heart failure; I42.9 Cardiomyopathy, unspecified; I16.1 Hypertensive emergency; E11.9 Type 2 diabetes mellitus without complications; I11.0 Hypertensive heart disease with heart failure; I25.10 Atherosclerotic heart disease of native coronary artery without angina pectoris; R00.0 Tachycardia, unspecified; E78.5 Hyperlipidemia, unspecified; Z79.84 Long term (current) use of oral hypoglycemic drugs; Z79.899 Other long term (current) drug therapy; Z82.49 Family history of ischemic heart disease and other diseases of the circulatory system
CPT/HCPCS: 36415; 71046; 71275; 74174; 80048; 80053; 80061; 83690; 83735; 83880; 84484; 85025; 85049; 85347; 85610; 85730; 90686; 93005; 93306; 93458; 96365; 96366; 96375; 99291

== ENCOUNTER → 2020-12-30 | Outpatient (CLI) | payer OTHER ==
[2020-12-30 21:10] LABS: ALT 32 U/L (10-49); AST 19 U/L (14-35); Alkaline Phosphatase 84 U/L (41-126); Bilirubin, Conjugated <0.20 mg/dL (0.20-0.40); Chol/HDL Ratio 2.65; Cholesterol 106 mg/dL (0-200); Creatine Kinase 45 U/L (35-257); Globulin 2.2 g/dL (1.6-3.3); LDL Cholesterol,Calculated 48.2 mg/dL (0.0-131.0); Total Bilirubin 0.4 mg/dL (0.2-1.2); Total Protein 6.6 g/dL (6.2-8.2)
== END | disposition home or self-care (01) ==
LOC: LABWHC1 08:04
PROVIDERS: ATTEND Internal Medicine Cardiovascular Disease
DX: E78.5 Hyperlipidemia, unspecified (principal)
CPT/HCPCS: 36415; 80061; 80076; 82550

== ENCOUNTER → 2021-01-31 | Outpatient (CLI) | payer OTHER ==
--- NOTE | 2021-01-31 15:24 | XR ---
EXAMINATION TYPE: XR hand complete bilateral DATE OF EXAM: 01/31/2021 COMPARISON: NONE HISTORY: Pain and swelling TECHNIQUE: Three views are submitted. FINDINGS: The osseous structures are intact. The joint spaces are preserved and there is no acute fracture or dislocation. IMPRESSION: 1. No definite acute fracture or dislocation if symptoms persist, follow-up study in 7 to 10 days wo uld be suggested
== END | disposition home or self-care (01) ==
LOC: RADXRMAIN 14:48
PROVIDERS: ATTEND Internal Medicine
DX: M79.641 Pain in right hand (principal); M79.642 Pain in left hand; M79.89 Other specified soft tissue disorders

== ENCOUNTER → 2023-06-03 | Outpatient (CLI) | payer SELFPAY ==
[2023-06-03 13:41] LABS: African American GFR (CKD) >90 (>60 ml/min/1.73 sqM); Blood Urea Nitrogen 31 mg/dL (9-20); Non-African American GFR(CKD) 80 (>60 ml/min/1.73 sqM)
--- NOTE | 2023-06-06 21:03 | CT ---
EXAMINATION TYPE: CT abdomen pelvis w con DATE OF EXAM: 06/03/2023 COMPARISON: 07/25/2020 HISTORY: 63-year-old male R10.11, Right upper quadrant pain TECHNIQUE: Contiguous axial scanning of the abdomen and pelvis following administration of 100 ml Iso gabby 300 IV contrast. Delayed images through the kidneys and coronal/sagittal reconstructions perform ed. CT DLP: 1694.5 mGycm Automated exposure control for dose reduction was used. FINDINGS: Heart upper limits of normal in size. LAD coronary calcifications are present. Strandy atel ectasis in the lower lungs. No pleural effusions. There is a small hiatal hernia. Liver enlarged at 19.7 cm with diminished attenuation of the liver parenchyma. Portal venous system i s patent. No biliary ductal dilatation. Gallbladder, adrenal glands, right kidney, spleen, and pancreas show no gross abnormal body. Tiny 9 mm cortical cyst posterior left kidney. Symmetric uptake and excretion of contrast from both k idneys. No dilated small bowel, free fluid, or free air. No mesenteric or retroperitoneal lymphadenopathy. Normal appendix. There is mild to moderate stool burden. Left-sided colonic diverticulosis. Mildly re dundant sigmoid colon. There is some circumferential wall thickening of the distal sigmoid colon and rectum not centered over any diverticular change. Mild to moderate circumferential bladder wall thickening. The prostate gland is enlarged at 6.4 cm wi de. No abnormal fluid collection in the pelvis or pelvic lymphadenopathy. Bones: Mild degenerative change both hips. Degenerative changes bilateral SI joints. Moderate to advanced degenerative disc disease L5-S1. There are bilateral L5 pars defects without spo ndylolisthesis. [facility] in the lower thoracic spine. IMPRESSION: 1. HEPATOMEGALY AT 19.7 CM WITH MODERATE TO SEVERE HEPATIC STEATOSIS. APPROPRIATE CLINICAL MANAGEMENT IS ADVISED. 2. LEFT-SIDED COLONIC DIVERTICULOSIS WITHOUT EVIDENCE OF ACUTE DIVERTICULITIS. 3. HOWEVER, THERE IS CIRCUMFERENTIAL WALL THICKENING AT THE DISTAL SIGMOID COLON AND RECTUM. CORRELAT E FOR NONSPECIFIC MILD INFECTIOUS OR INFLAMMATORY DISTAL COLITIS. 4. PROSTATOMEGALY AT 6.4 CM WIDE. CIRCUMFERENTIAL BLADDER WALL THICKENING COULD REPRESENT CHRONIC SARAH DDER WALL HYPERTROPHY OR CYSTITIS. 5. SMALL HIATAL HERNIA.
== END | disposition home or self-care (01) ==
LOC: RADCTMAIN 13:02
PROVIDERS: ATTEND Internal Medicine
DX: K44.9 Diaphragmatic hernia without obstruction or gangrene (principal); N40.2 Nodular prostate without lower urinary tract symptoms; N32.89 Other specified disorders of bladder; K57.30 Diverticulosis of large intestine without perforation or abscess without bleeding; K63.89 Other specified diseases of intestine; K76.0 Fatty (change of) liver, not elsewhere classified; R16.0 Hepatomegaly, not elsewhere classified
CPT/HCPCS: 82565; 84520; 74177; 36415; Q9967